=== PATIENT | male | born 1930 | race Caucasian/White ===

== ENCOUNTER → 2016-07-31 | Outpatient (CLI) | payer MEDICARE ==
[~2016-07-31] MED LIST: ALDACTONE25 MG PO; ASCORBIC ACID500 MG PO; BETAPACE (GENER80 MG PO; COLACE100 MG PO; COUMADIN ** IA5 MG PO; COZAAR25 MG PO; DITROPAN5 MG PO; LANOXIN (DIGI250 MCG PO; LANTUS SOL100 UNIT/1 SUB-Q; LASIX40 MG PO; LOPID600 MG PO; LOPRESSOR50 MG PO; MIRALAX17 GM PO; NITROGLYCERIN0.4 M1 TRANS; NOVOLOG FL100 UNIT/1 SUB-Q; PRAVACHOL40 MG PO; PRESERVISION A1 EACH PO; VITAMIN B-1250 MG PO
--- NOTE | ~2016-07-31 | ESTC ---
Cardiac Perfusion Imaging Demographics Patient Name JUDY Lanza Gender Male Patient Number [id number] Race Visit Number [id number] Ethnicity [employer] ID Room Number Accession Number [id number] Height 74 inches Date of 1930 Weight 170 pounds Interpreting Dulce Ponce MD Date of study 07/31/2016 Physician Supervising /SURAJ Mckenna NM Technologist Vincenzo Smallwood APRN Ordering Physician Stress sonography technician Stress ECG Reading Keshav Mckenna Nurse Roberta Arguello RN Physician TEETEE The procedure was explained in detail to the patient. Risks, complications and alternative treatments were reviewed. Written consent was obtained. Medications Reviewed with Patient prior to Procedure. Procedure Admit Source:Other. Procedure Type: Nuclear Stress Test:Pharmacological, Lexiscan, Cardiolite Stress Test Procedure Start time: 07/31/2016 00:00 Indications: Shortness of Breath with Exertion. Risk Factors The patient risk factors include:prior PCI on 05/01/2013;prior CABG;former tobacco use, hypercholesterolemia, hypertension, insulin treated diabetes mellitus, previous cardiac transplant and prior valve surgery/procedure . Conclusions Summary Cardiolite SPECT images demonstrates homogenous uptake of radioactive tracer. No evidence of inducible reversible defect and no evidence of underlying fixed defect. TID is mildly increased at 1.14 Gated images demonstrates normal left ventricular systolic function. LVEF is 63% Stress Protocols Resting ECG 1:1 V paced Resting HR:60 bpm Resting BP:145/71 mmHg Pre-stress physical exam: Alert, Shortness of breath with exertion. Stress Protocol:Pharmacologic Peak HR:63 bpm HR response: Appropriate Predicted HR: 135 bpm BP response: Appropriate % of predicted HR: 47 Reason for termination:Infusion complete ECG Findings Indeterminate ECG due to baseline abnormalities. Arrhythmias No rhythm abnormality. Symptoms Nausea, shortness of breath. chest pain. Stress Interpretation Appropriate hemodynamic response to Lexiscan. No significant ST-T wave changes with Lexiscan. ECG continues 1:1 V paced. Await cardiolite images. Stress supervision and interpretation provided by Sima Parr APRN . Imaging Results Summed scores - Summed stress score: 1 - Summed rest score: 5 - Summed difference score: -4 Stress ejection Ejection fraction:62 % EDV :106 ml ESV :40 ml Stroke volume :66 ml LV mass :137 gr Imaging Protocols Technique: SPECT Technique: Gated Supine SPECT Supine Scan Time:45-60 minutes post Scan Time:45-60 minutes post injection injection Procedure Medications - Regadenoson (Lexiscan) 0.4 mg IV over 10-15 sec. I.V. 0.4 mg. Medical History Admission Medications + +------+ + + +--------+ !Name !Dosage!Times per day !Start date !Stop date !Details ! + +------+ + + +--------+ !Beta Adonay (any) ! ! ! ! ! ! + +------+ + + +--------+ Admission Data Admission date: 07/31/2016 Admission Time: 06:55 Hospital Status: Outpatient. Signatures dtt: Kris Cardona (cardio) dtd: 07/31/16 0000 Physician Self Kizzy
== END ==
LOC: GRAD 06:55
DX: R06.02 Shortness of breath (principal)
CPT/HCPCS: A9500; J0280; J2785

== ENCOUNTER 2016-08-22 07:01 | Outpatient (CLI) | payer MEDICARE ==
[~2016-08-22] VITALS: Ht 188 cm; Wt 75.8 kg
--- NOTE | ~2016-08-22 | CATH ---
Cardiac Diagnostic Report Demographics Patient Name JUDY Lanza Gender Male Date of 1930 Age 86 year(s) Patient Number [id number] Date of Study 08/22/2016 Visit Number [id number] Room Number G63[address] [place] [id number] Ht 188 cm Wt 75.8 kg Referring Dulce Ponce MD Primary Physician Physician Performing Dulce Ponce MD Secondary Physician Physician Diagnostic Dulce Ponce MD Assisting Physician Physician Interventional Physician Attendant Coin Operated Laundry Physician Findings and Conclusions Diagnostic Findings and Conclusion Two Vessel Coronary Artery Disease. 3/3 grafts patent Moderate pulmonary hypertension Diagnostic Recommendations Medical therapy Procedure Description The patient was brought to the diagnostic cardiac catheterization-EP laboratory in the fasting, non-sedated state. Informed consent was obtained in the written and verbal form after the risks and benefits were explained. The patient had no further questions and agreed to proceed. The planned puncture-incision site(s) were shaved and prepped with ChloraPrep. After a three minute dry time the patient was draped in the usual sterile procedure. Pain control medications were delivered by a registered nurse under physician guidance. Surface ECG rhythm, blood pressure measurement, supplemental oxygen, and pulse oximetry were monitored throughout the procedure. Right heart catheterization. A [place] Leticia catheter was successfully advanced to the right atrium, right ventricle, pulmonary artery, and pulmonary artery wedge position under fluoroscopic guidance. Resting hemodynamics were obtained. Measurements included pressures. Selective left coronary angiography. A catheter was advanced into the left coronary vessel ostium under Fluoroscopic guidance. Contrast was injected by hand. Images were obtained in multiple projections. Selective right coronary angiography. A catheter was advanced into the right coronary vessel ostium under fluoroscopic guidance. Contrast was injected by hand. Images were obtained in multiple projections. Selective OBREGON graft angiography. A catheter was advanced into the left internal mammary graft ostium under fluoroscopic guidance. Contrast was injected by hand. Images were obtained in multiple projections. Selective SVG LCA angiography. A catheter was advanced into the graft proximal anastomosis under fluoroscopic guidance. Contrast was injected by hand. Images were obtained in multiple projections. Selective SVG diagonal angiography. A catheter was advanced into the graft proximal anastomosis under fluoroscopic guidance. Contrast was injected by hand. Images were obtained in multiple projections. Hemostasis was obtained with an angioseal in the right femoral artery and manual pressure was held to the right femoral vein. The patient was monitored and taken back to Pre/Post surgical unit for recovery in stable condition. Procedure Procedure Type Diagnostic procedure:Angiography:, RHC/LHC w/Grafts Indications: Shortness of breath and Chest discomfort. The procedure was explained in detail to the patient. Risks, complications and alternative treatments were reviewed. Written consent was obtained. Medications Reviewed with Patient prior to Procedure. Angiographic Findings Dominance: Mixed Cardiac Arteries and Lesion Findings LMCA: Normal (0% Stenosis).large LAD: Abnormal.Large proximal sub-totaled mid Diag 1 + 2 medium, ok Diag 3 small and competitive flow LCx: Normal (0% Stenosis).Large dominant, patent stent RCA: Normal (0% Stenosis).medium normal Cardiac Grafts - There is a Vein graft that originates at the Aorta Left and attaches to the Prox LAD. - There is a Vein graft that originates at the Aorta Left and attaches to the 1st Diag. - There is a graft that originates at the OBREGON and attaches to the Prox LAD. Coronary Tree Procedure Data Procedure Date Date: 08/22/2016Start: 09:52 AM Entry Locations - Retrograde Percutaneous access was performed through the Right Femoral artery (Primary location). A 6 Fr sheath was inserted. Hemostasis was successfully obtained using Angio-Seal STS PLUS ([facility] [facility]). Closure Comments: By Ismael Elizabeth. - Antegrade Percutaneous access was performed through the Right Femoral vein. A 7 Fr sheath was inserted. Hemostasis was successfully obtained using Manual Compression. Closure Comments: by Grisel Guevara. Procedure Medications Order and Administration + + +-------+------+ !Time !Medication !Dosage !Route ! + + +-------+------+ !08/22/2016 09:57 AM !Fentanyl !25 mcg !I.V. ! + + +-------+------+ Devices Used - A6 Fr. BS Angled Pigtail Diag. Catheterwas used for:LV Pressures. - A6 Fr. BS JL 4 Diag. Catheterwas used for:Left coronary angiography. - A6 Fr. BS JR 4 Diag. Catheterwas used for:Right coronary angiography. - A6 Fr. BS IMT Diag. Catheterwas used for:Radial Graft. Contrast Material - Isovue [id number] ml Fluoroscopy Time: Diagnostic: 14:48 minutes. Total: 14:48 minutes. Fluoroscopy Dose: Diagnostic: 792 mGy. Total: 792 mGy. Estimated Blood Loss: 5 ml. Medical History Allergies - Latex. - Other:(cordarone). - Other:(Amiodarone, Latex, [place]). - Chocolate. Risk Factors The patient risk factors include:prior PCI;prior CABG;hypercholesterolemia, hypertension, family history of premature CAD, insulin-treated diabetes mellitus, last creatinine: 1.2 mg/dl, creatinine clearance: 48.25 ml/min, prior valve surgery/procedure, dyslipidemia, former tobacco use, prior heart failure and prior [place] . Admission Data Admission Date: 08/22/2016 Admission Time: 07:01 AM Admit Source: Other Insurance Payors: Medicare. Admission Medications + +------+------+ + + + + !Medication !Dosage!Times !Last !Last !Administered !Comments ! ! ! !Per !Delivery !Delivery ! ! ! ! ! !Day !Date !Time ! ! ! + +------+------+ + + + + !Beta ! ! ! ! !Yes ! ! !Adonay ! ! ! ! ! ! ! !(any) ! ! ! ! ! ! ! + +------+------+ + + + + !Statin ! ! ! ! !Yes ! ! !(any) ! ! ! ! ! ! ! + +------+------+ + + + + !Non-Statin ! ! ! ! !Yes ! ! !(any) ! ! ! ! ! ! ! + +------+------+ + + + + !ARB (any) ! ! ! ! !Yes ! ! + +------+------+ + + + + Clinical Evaluation Leading to Procedure - The patient's CAD presentation was assessed as: Unstable angina. - Anti-anginal medications were prescribed during the past two weeks. The medication is: Beta Blockers. Hemodynamics Condition: Rest O2 Consumption: Estimated: 223.39Heart Rate: 64 bpm Oxygen Saturation +--------+-----+----+ +----+ + !Location!pCO2 !pO2 !% Saturation !Hgb !O2 Content ! +--------+-----+----+ +----+ + !RA ! ! !54.4 !13.6! ! +--------+-----+----+ +----+ + !PCW ! ! !57.8 !13.6! ! +--------+-----+----+ +----+ + !FA ! ! !94.7 !13.6! ! +--------+-----+----+ +----+ + !SVC ! ! !56.6 !13.6! ! +--------+-----+----+ +----+ + Pressures (mmHg) +-----+ + !Site !Pressure ! +-----+ + !AO !0/-3 (-2) ! +-----+ + !RA !15 (11) ! +-----+ + !AO !0/-3 (-2) ! +-----+ + !RV !46/-3 ,8 ! +-----+ + !AO !0/-3 (-2) ! +-----+ + !PA !40/ (30) ! +-----+ + !AO !/ (-2) ! +-----+ + !PCW ! (15) ! +-----+ + !AO !156/75 (109) ! +-----+ + Cardiac Output + + +------+ !Time !Cardiac Output (l/min) !Use ! + + +------+ !08/22/2016 10:29 AM !4.49 !False ! + + +------+ !08/22/2016 10:29 AM !2.99 !True ! + + +------+ !08/22/2016 10:30 AM !2.46 !False ! + + +------+ !08/22/2016 10:31 AM !2.82 !True ! + + +------+ !08/22/2016 10:31 AM !2.88 !True ! + + +------+ Cardiac Output +-------+ + + + !Method !CO (l/min) !CI (l/min/m2) !SV (ml) ! +-------+ + + + !Sade !3 !1.5 !47.08 ! +-------+ + + + !Thermal!2.146455 !1.4 !48.28 ! +-------+ + + + Shunts Oxygen Values O2 Capacity 184.96 O2 Consumption 223.39 Flows (l/min) Qs 3 Qe 35.52 Vascular Resistance (dynes x sec x cm-5) + +-----+-----+-----+----+---------+-------+ !CO method !TSVR !SVR !TPVR !PVR !TPVR/TSVR!PVR/SVR! + +-----+-----+-----+----+---------+-------+ !Sade !36.27!32.76!10 !4.99!0.28 !0.15 ! + +-----+-----+-----+----+---------+-------+ !Thermal !37.56!33.93!10.36!5.17!0.28 !0.15 ! + +-----+-----+-----+----+---------+-------+ !Qp or Qs !36.27!32.76! ! ! ! ! + +-----+-----+-----+----+---------+-------+ Discharge Data Discharge Date: 08/22/2016 Hospital Status: Outpatient Signatures dtt: Kris Cardona (cardio) dtd: 08/22/16 0952 Physician Self Edit
[2016-08-22 08:17] LABS: INR - (THERAPEUTIC) 1.21 (0.92-1.07); PROTIME 12.7 SECONDS (9.8-11.4)
== END 2016-08-22 15:10 | disposition disaster alternative care site (69) ==
LOC: GPCU 07:01 → GCAT 07:01
PROVIDERS: Internal Medicine Interventional Cardiology
DX: R06.02 Shortness of breath (principal); I25.10 Atherosclerotic heart disease of native coronary artery without angina pectoris; I25.5 Ischemic cardiomyopathy; I48.0 Paroxysmal atrial fibrillation; E78.5 Hyperlipidemia, unspecified; E11.9 Type 2 diabetes mellitus without complications; E78.00 Pure hypercholesterolemia, unspecified; I25.2 Old myocardial infarction; H35.30 Unspecified macular degeneration; R94.39 Abnormal result of other cardiovascular function study; Z79.82 Long term (current) use of aspirin; Z79.4 Long term (current) use of insulin; Z79.01 Long term (current) use of anticoagulants; Z79.899 Other long term (current) drug therapy; Z95.1 Presence of aortocoronary bypass graft; Z95.810 Presence of automatic (implantable) cardiac defibrillator; Z95.5 Presence of coronary angioplasty implant and graft; Z95.2 Presence of prosthetic heart valve; Z87.891 Personal history of nicotine dependence; Z82.49 Family history of ischemic heart disease and other diseases of the circulatory system
CPT/HCPCS: C1760; J1644; J3010; J7030; J7060